=== PATIENT | female | born 1985 | race Caucasian/White ===

== ENCOUNTER → 2018-03-15 09:49 | Outpatient (CLI) | payer OTHER, SELFPAY ==
[2018-03-15 10:21] LABS: Add Manual Diff / Slide Review NO; Basophils Percent Auto 0.8 % (0-2); Eosinophils Percent Auto 2.6 % (2-4); Hematocrit 37.9 % (36-46); Lymphocytes Percent Auto 37.1 % (25-40); Mean Corpuscular HGB Conc 34.3 % (30-36); Mean Corpuscular Hemoglobin 30.8 PG (26-34); Mean Corpuscular Volume 89.6 fL (80-100); Monocytes Percent Auto 7.8 % (3-14); Neutrophils Absolute Auto 2600 /uL (3000-5900); Neutrophils Percent Auto 51.7 % (50-75); Platelet Count 195 X10^3/uL (150-400); Red Blood Cell Count 4.23 X10^6/uL (4.0-5.2); Red Cell Distribution Width 12.7 % (11.6-14.8)
[2018-03-15 11:09] LABS: Alanine Aminotransferase 18 IU/L (9-52); Albumin 4.7 g/dL (3.5-5.0); Albumin Globulin Ratio 1.7 (1.0-2.8); Alkaline Phosphatase 41 U/L (38-126); Aspartate Aminotransferase 26 IU/L (14-36); BUN Creatinine Ratio 18.6 (6-22); Blood Urea Nitrogen 13 mg/dL (7-17); Calcium 9.6 mg/dL (8.4-10.2); Carbon Dioxide 29 mmol/L (22-32); Chloride 102 mmol/L (98-107); Estimated Glomerular Filt Rate > 60.0 mL/min (>60); Globulin 2.7 g/dL (1.7-4.1); Glucose 92 mg/dL (70-100); HEMOLYSIS 25 (0-50); Potassium 4.3 mmol/L (3.4-5.1); Sodium 142 mmol/L (137-145); Total Protein 7.4 g/dL (6.3-8.2)
[2018-03-15 11:43] LABS: TSH w/ Reflex to FT4 0.85 uIU/mL (0.47-4.68)
== END ==
PROVIDERS: PCP Family Medicine; Visit Provider Nurse Practitioner Family
DX: F41.9 Anxiety disorder, unspecified (principal); G47.00 Insomnia, unspecified; G47.26 Circadian rhythm sleep disorder, shift work type
CPT/HCPCS: 36415; 80053; 84443; 85025

== ENCOUNTER 2018-10-30 09:57 | Emergency (ER) | payer OTHER, SELFPAY ==
[2018-10-30] VITALS (10 sets, daily range): BP systolic 85–111; BP diastolic 37–66; PULSE 65–78; RESP 12–26; TEMP 36.8–37.1; O2SAT 98–100; BMI 25.4
[2018-10-30] MEDS: KETOROLAC 60 MG/2 ML VIAL 15 MG IV (11:10)
[2018-10-30] MEDS: SODIUM CHLORIDE 0.9% 1,000 ML 1000 ML IV (11:10)
[2018-10-30 11:27] LABS: Add Manual Diff / Slide Review NO; Basophils Absolute Auto 0 /uL (0-100); Basophils Percent Auto 0.6 % (0-2); Eosinophils Absolute Auto 0 /uL (0-450); Eosinophils Percent Auto 0.4 % (2-4); Hematocrit 40.1 % (36-46); Hemoglobin 13.7 g/dL (12.0-16.0); Lymphocytes Absolute Auto 1400 /uL (1100-4500); Lymphocytes Percent Auto 24.1 % (25-40); Mean Corpuscular HGB Conc 34.2 % (30-36); Mean Corpuscular Hemoglobin 30.1 PG (26-34); Mean Corpuscular Volume 88.2 fL (80-100); Monocytes Absolute Auto 400 /uL (0-900); Monocytes Percent Auto 7.4 % (3-14); Neutrophils Absolute Auto 4000 /uL (1500-7000); Neutrophils Percent Auto 67.5 % (50-75); Platelet Count 238 X10^3/uL (150-400); Red Blood Cell Count 4.55 X10^6/uL (4.0-5.2); Red Cell Distribution Width 13.2 % (11.6-14.8); White Blood Cell Count 5.9 X10^3/uL (4.5-11.0)
--- NOTE | 2018-10-30 11:33 | ED_ITS ---
HPI - Headache General Chief Complaint: Headache Stated Complaint: headache/neck pain/fever x7 days Time Seen by Provider: 10/30/18 10:06 Source: patient Mode of arrival: ambulatory Limitations: no limitations History of Present Illness HPI Narrative: 33-year-old female nonsmoker is otherwise healthy and presents to the emergency department with 1 week of headache, neck pain and now fever for the past few days. She denies any specific symptoms such as runny nose, sore throat or cough. She has had no chest pain or shortness of breath. She denies any nausea, vomiting or diarrhea. She has had no dysuria, frequency or urgency. She did have an episode of some chills a few days ago. She was seen at the walk-in clinic and they sent her here for further evaluation MD Complaint: headache Onset (ago): day(s) Onset description: gradual Location: diffuse Severity: moderate Quality: aching and throbbing Relieving factors: nothing Associated symptoms: fever, neck stiffness and photophobia Treatments prior to arrival: acetaminophen and ibuprofen Related Data Home Medications Medication Instructions Recorded Confirmed cetirizine 10 mg capsule 10 mg PO DAILY 03/28/18 10/30/18 fluticasone propionate 50 1 spray NASAL DAILY 03/28/18 10/30/18 mcg/actuation nasal spray,suspension norgestimate-ethinyl estradiol 1 tab PO QPM 10/30/18 10/30/18 [[place]] Previous Rx's Medication Instructions Recorded albuterol sulfate [Proventil HFA] 1 puff INH Q4HP PRN #8.5 gm 11/01/16 trazodone 50 mg tablet 50 mg PO BEDTIME PRN #90 tab 10/16/18 Allergies Allergy/AdvReac Type Severity Reaction Status Date / Time No Known Drug Allergies Allergy Verified 10/30/18 10:29 Review of Systems Constitutional Denies chills, Denies fever(s), Reports headache(s), Denies lethargy and Denies weakness Eyes Denies change in vision, Denies eye discharge, Denies irritation and Denies loss of vision ENT Ears, Nose, Mouth, and Throat: Denies change in voice, Reports headache(s), Reports neck pain and Denies sore throat Cardiovascular Denies chest pain, Denies irregular heart rhythm, Denies lightheadedness, Denies palpitations, Denies dyspnea, Denies dyspnea on exertion and Denies orthopnea Respiratory Denies cough, Denies dyspnea, Denies dyspnea on exertion and Denies wheezing Gastrointestinal Gastrointestinal: Denies abdominal pain, Denies change in bowel habits, Denies diarrhea, Denies nausea and Denies vomiting Genitourinary Denies hematuria, Denies flank pain, Denies urinary incontinence and Denies urinary urgency Musculoskeletal Reports myalgias and Reports neck pain Integumentary/Breasts Denies pruritus, Denies erythema, Denies rash and Denies wounds Neurologic Denies confusion, Reports headache(s), Denies loss of vision and Denies weakness Psychiatric Denies anxiety, Denies confusion, Denies depression, Denies homicidal ideation and Denies suicidal ideation Endocrine Denies palpitations Hematologic/Lymphatic Denies easy bruising Allergic/Immunologic Denies wheezing PFSH Medical History Vaginal delivery (Resolved) Social History Smoking Status: Never smoker alcohol intake: current substance use type: marijuana Social History Smoking Status: Never smoker alcohol intake: current substance use type: marijuana Exam Narrative Exam Narrative: GENERAL: 33-year-old female, obviously uncomfortable, resting in a dark room HEAD: Atraumatic. Normocephalic. No temporal or scalp tenderness. EYES: Pupils equal round and reactive. Extraocular motions intact. No scleral icterus. No injection or drainage. ENT: Nose without bleeding, purulent drainage or septal hematoma. Throat without erythema, tonsillar hypertrophy or exudate. Uvula midline. Airway patent. NECK: Trachea midline. No JVD or lymphadenopathy. Paraspinal muscles are mildly tender to palpation but patient has ability to look left, right as well as up and down. She is found sitting in the room with her knees bent. She has negative Kernig's and Brudzinski's signs CARDIOVASCULAR: Regular rate and rhythm without murmurs, gallops, or rubs. RESPIRATORY: Clear to auscultation. Breath sounds equal bilaterally. No wheezes, rales, or rhonchi. GASTROINTESTINAL: Abdomen soft, non-tender, nondistended. No hepato- splenomegaly, or palpable masses. No guarding. EXTREMITIES: No clubbing, cyanosis, or edema. No joint tenderness, effusion, or edema noted. BACK: Nontender without deformity or crepitance. No flank tenderness. NEURO: AOx3. SKIN: No rash or erythema. Initial Vital Signs Initial Vital Signs: Vital Signs Temperature 98.8 F 10/30/18 10:29 Pulse Rate 78 10/30/18 10:29 Respiratory Rate 16 10/30/18 10:29 Blood Pressure 97/59 L 10/30/18 10:29 Pulse Oximetry 99 10/30/18 10:29 Procedures Lumbar Puncture Time Out Performed: Yes Patient Position: upright Skin Prep: 0.5% Chlorhexidine/Alcohol Local Anesthetic: lidocaine 1% Amount of anesthesia used (mL): 4 Spinal Needle Gauge: 22G Interspace Used: L4-L5 Fluid Initially Obtained: clear Complications: none Course Orders Ordered: ED Orders 10/30/18 10:25 Influenza A and B by PCR Rapid Stat 10/30/18 11:05 Basic Metabolic Panel Stat Blood Culture Stat Complete Blood Count AUTO DIFF Stat Lactate (Lactic Acid) Stat Procalcitonin Stat 10/30/18 11:55 Cell Count w Diff CSF Stat Cell Count w Diff CSF Stat Glucose CSF Stat Meningitis Panel (Film Array) Stat Total Protein CSF Stat 10/30/18 12:12 CSF culture Stat 10/30/18 14:36 Ictotest Urine Stat Urinalysis and Microscopic Stat Discontinued Medications Acetaminophen (Tylenol) 650 mg PO NOW ONE Stop: 10/30/18 15:36 Last Admin: 10/30/18 15:40 Dose: 650 mg Diphenhydramine HCl (Benadryl) 25 mg IV NOW ONE Stop: 10/30/18 16:12 Last Admin: 10/30/18 16:13 Dose: 25 mg Sodium Chloride (Normal Saline 0.9%) 1,000 mls @ 1,000 mls/hr IV BOLUS ONE Stop: 10/30/18 11:26 Last Infusion: 10/30/18 12:58 Dose: 0 mls/hr Admin: 10/30/18 11:10 Dose: 1,000 mls/hr Ceftriaxone Sodium/Dextrose (Rocephin) 1 gm in 50 mls @ 100 mls/hr IV NOW ONE Stop: 10/30/18 13:04 Last Admin: 10/30/18 12:57 Dose: Not Given Ceftriaxone Sodium/Dextrose (Rocephin) 2 gm in 50 mls @ 100 mls/hr IV NOW ONE Stop: 10/30/18 13:08 Last Infusion: 10/30/18 13:53 Dose: 0 mls/hr Admin: 10/30/18 12:46 Dose: 100 mls/hr Vancomycin HCl/Dextrose (Vancomycin) 750 mg in 150 mls @ 150 mls/hr IV NOW ONE Stop: 10/30/18 15:23 Last Infusion: 10/30/18 16:11 Dose: 0 mls/hr Admin: 10/30/18 14:57 Dose: 150 mls/hr Famotidine (Pepcid) 20 mg in 50 mls @ 200 mls/hr IV NOW ONE Stop: 10/30/18 16:25 Last Infusion: 10/30/18 17:10 Dose: 0 mls/hr Admin: 10/30/18 16:15 Dose: 200 mls/hr Ketorolac Tromethamine (Toradol) 15 mg IV NOW ONE Stop: 10/30/18 10:40 Last Admin: 10/30/18 11:10 Dose: 15 mg Methylprednisolone (Solu-Medrol 125 Mg Vial) 125 mg IV NOW ONE Stop: 10/30/18 16:12 Last Admin: 10/30/18 16:13 Dose: 125 mg Consultations Consultation #1: call to [facility]. Happy to accept patient, will send to [place] for ongoing evaluation and trending out cultures patient developed some itching and rash after vanco completed, added solumedrol, benadryl Vital Signs - 8 hr 10/30/18 10:29 10/30/18 11:08 10/30/18 11:30 Temperature 98.8 F Pulse Rate 78 70 67 Respiratory Rate 16 26 H 20 Blood Pressure 97/59 L Blood Pressure [Left Arm] 111/66 87/48 L Pulse Oximetry 99 98 99 10/30/18 11:50 10/30/18 12:00 10/30/18 12:30 Temperature 98.7 F Pulse Rate 72 65 75 Respiratory Rate 20 21 12 Blood Pressure Blood Pressure [Left Arm] 105/46 L 89/45 L 85/37 L Pulse Oximetry 100 99 100 10/30/18 13:12 10/30/18 15:30 10/30/18 17:01 Temperature 98.3 F Pulse Rate 69 70 66 Respiratory Rate 20 18 15 Blood Pressure Blood Pressure [Left Arm] 95/58 L 95/52 L 100/58 L Pulse Oximetry 99 100 100 MDM - Headache Lab Data Result diagrams: 10/30/18 11:05 10/30/18 11:05 Lab Results 10/30/18 10/30/18 10/30/18 Range/Units 10:25 11:05 11:05 WBC 5.9 (4.5-11.0) X10^3/uL RBC 4.55 (4.0-5.2) X10^6/uL Hgb 13.7 (12.0-16.0) g/dL Hct 40.1 (36-46) % MCV 88.2 (80-100) fL MCH 30.1 (26-34) PG MCHC 34.2 (30-36) % RDW 13.2 (11.6-14.8) % Plt Count 238 (150-400) X10^3/uL Neut % (Auto) 67.5 (50-75) % Lymph % (Auto) 24.1 L (25-40) % [place] % (Auto) 7.4 (3-14) % Eos % (Auto) 0.4 L (2-4) % Baso % (Auto) 0.6 (0-2) % Neut # (Auto) 4000 (9873-7168) /uL Lymph # (Auto) 1400 (3648-0804) /uL [place] # (Auto) 400 (0-900) /uL Eos # (Auto) 0 (0-450) /uL Baso # (Auto) 0 (0-100) /uL Sodium (137-145) mmol/L Potassium (3.4-5.1) mmol/L Chloride (98-107) mmol/L Carbon Dioxide (22-32) mmol/L BUN (7-17) mg/dL Creatinine (0.52-1.04) mg/dL Estimated GFR (>60) mL/min BUN/Creatinine Ratio (6-22) Glucose (70-100) mg/dL Lactate (0.7-2.1) mmol/L Calcium (8.4-10.2) mg/dL Procalcitonin < 0.05 (<0.5) ng/mL Urine Color Urine Appearance Urine pH (4.5-8.0) Ur Specific [place] (1.000-1.035) Urine Protein (Negative) Urine Glucose (UA) (Negative) g/dL Urine Ketones (NEGATIVE) Urine Occult Blood (Negative) Urine Nitrate (Negative) Urine Bilirubin (NEGATIVE) Urine Ictotest (Negative) Urine Urobilinogen (0.2) E.U./dL Ur Leukocyte Esterase (NEGATIVE) Urine RBC (0-5/HPF) Urine WBC (0-5/HPF) Ur Squamous Epith Cells (0-5/HPF) Amorphous Sediment Urine Bacteria (None) Urine Mucus (Negative) Ur Culture Indicated? CSF Tube Number CSF Volume CSF Appearance (Clear) CSF Color (Colorless) CSF WBC (0-5) MONO/uL CSF RBC RBC /uL CSF Mononuclear WBCs % CSF Polynuclear WBCs % CSF Glucose (40-70) mg/dL CSF Total Protein (12-60) mg/dL CSF C.neoform/gat PCR (Not Detect) CSF CMV DNA (PCR) (Not Detect) CSF Enterovirus (PCR) (Not Detect) CSF E. coli (PCR) (Not Detect) CSF H. influenzae (PCR) (Not Detect) CSF HSV I (PCR) (Not Detect) CSF HSV II (PCR) (Not Detect) CSF HHV 6 (PCR) (Not Detect) CSF L.monocytogenes PCR (Not Detect) CSF N. meningitidis PCR (Not Detect) CSF Parechovirus (PCR) (Not Detect) CSF S. agalactiae (PCR) (Not Detect) CSF S. pneumoniae (PCR) (Not Detect) CSF VZV (PCR) Influenza A & B (PCR) Negative (Negative) 10/30/18 10/30/18 10/30/18 Range/Units 11:05 11:05 11:55 WBC (4.5-11.0) X10^3/uL RBC (4.0-5.2) X10^6/uL Hgb (12.0-16.0) g/dL Hct (36-46) % MCV (80-100) fL MCH (26-34) PG MCHC (30-36) % RDW (11.6-14.8) % Plt Count (150-400) X10^3/uL Neut % (Auto) (50-75) % Lymph % (Auto) (25-40) % [place] % (Auto) (3-14) % Eos % (Auto) (2-4) % Baso % (Auto) (0-2) % Neut # (Auto) (9722-2636) /uL Lymph # (Auto) (8334-4213) /uL [place] # (Auto) (0-900) /uL Eos # (Auto) (0-450) /uL Baso # (Auto) (0-100) /uL Sodium 138 (137-145) mmol/L Potassium 4.1 (3.4-5.1) mmol/L Chloride 103 (98-107) mmol/L Carbon Dioxide 24 (22-32) mmol/L BUN 18 H (7-17) mg/dL Creatinine 0.80 (0.52-1.04) mg/dL Estimated GFR > 60.0 (>60) mL/min BUN/Creatinine Ratio 22.5 H (6-22) Glucose 82 (70-100) mg/dL Lactate 0.8 (0.7-2.1) mmol/L Calcium 9.2 (8.4-10.2) mg/dL Procalcitonin (<0.5) ng/mL Urine Color Urine Appearance Urine pH (4.5-8.0) Ur Specific [place] (1.000-1.035) Urine Protein (Negative) Urine Glucose (UA) (Negative) g/dL Urine Ketones (NEGATIVE) Urine Occult Blood (Negative) Urine Nitrate (Negative) Urine Bilirubin (NEGATIVE) Urine Ictotest (Negative) Urine Urobilinogen (0.2) E.U./dL Ur Leukocyte Esterase (NEGATIVE) Urine RBC (0-5/HPF) Urine WBC (0-5/HPF) Ur Squamous Epith Cells (0-5/HPF) Amorphous Sediment Urine Bacteria (None) Urine Mucus (Negative) Ur Culture Indicated? CSF Tube Number 2 CSF Volume 1.0 ml CSF Appearance Clear (Clear) CSF Color Colorless (Colorless) CSF WBC 372.5 H (0-5) MONO/uL CSF RBC 10 RBC /uL CSF Mononuclear WBCs 98 % CSF Polynuclear WBCs 2 % CSF Glucose 46 (40-70) mg/dL CSF Total Protein 85 H (12-60) mg/dL CSF C.neoform/gat PCR (Not Detect) CSF CMV DNA (PCR) (Not Detect) CSF Enterovirus (PCR) (Not Detect) CSF E. coli (PCR) (Not Detect) CSF H. influenzae (PCR) (Not Detect) CSF HSV I (PCR) (Not Detect) CSF HSV II (PCR) (Not Detect) CSF HHV 6 (PCR) (Not Detect) CSF L.monocytogenes PCR (Not Detect) CSF N. meningitidis PCR (Not Detect) CSF Parechovirus (PCR) (Not Detect) CSF S. agalactiae (PCR) (Not Detect) CSF S. pneumoniae (PCR) (Not Detect) CSF VZV (PCR) Influenza A & B (PCR) (Negative) 10/30/18 10/30/18 10/30/18 Range/Units 11:55 11:55 14:36 WBC (4.5-11.0) X10^3/uL RBC (4.0-5.2) X10^6/uL Hgb (12.0-16.0) g/dL Hct (36-46) % MCV (80-100) fL MCH (26-34) PG MCHC (30-36) % RDW (11.6-14.8) % Plt Count (150-400) X10^3/uL Neut % (Auto) (50-75) % Lymph % (Auto) (25-40) % [place] % (Auto) (3-14) % Eos % (Auto) (2-4) % Baso % (Auto) (0-2) % Neut # (Auto) (5502-0909) /uL Lymph # (Auto) (3081-7477) /uL [place] # (Auto) (0-900) /uL Eos # (Auto) (0-450) /uL Baso # (Auto) (0-100) /uL Sodium (137-145) mmol/L Potassium (3.4-5.1) mmol/L Chloride (98-107) mmol/L Carbon Dioxide (22-32) mmol/L BUN (7-17) mg/dL Creatinine (0.52-1.04) mg/dL Estimated GFR (>60) mL/min BUN/Creatinine Ratio (6-22) Glucose (70-100) mg/dL Lactate (0.7-2.1) mmol/L Calcium (8.4-10.2) mg/dL Procalcitonin (<0.5) ng/mL Urine Color [place] Urine Appearance Clear Urine pH 5.0 (4.5-8.0) Ur Specific [place] >=1.030 H (1.000-1.035) Urine Protein Trace H (Negative) Urine Glucose (UA) Negative (Negative) g/dL Urine Ketones 3+ H (NEGATIVE) Urine Occult Blood Negative (Negative) Urine Nitrate Negative (Negative) Urine Bilirubin 2+ H (NEGATIVE) Urine Ictotest Negative (Negative) Urine Urobilinogen 0.2 (0.2) E.U./dL Ur Leukocyte Esterase Negative (NEGATIVE) Urine RBC None seen (0-5/HPF) Urine WBC 0-1/hpf (0-5/HPF) Ur Squamous Epith Cells 0-1 /hpf (0-5/HPF) Amorphous Sediment 2+ Urine Bacteria Occasional (0-1) (None) Urine Mucus 2+ H (Negative) Ur Culture Indicated? Cult not indicated CSF Tube Number 4 CSF Volume 1.0 ml CSF Appearance Clear (Clear) CSF Color Colorless (Colorless) CSF WBC 485 H (0-5) MONO/uL CSF RBC 3 RBC /uL CSF Mononuclear WBCs 91 % CSF Polynuclear WBCs 9 % CSF Glucose (40-70) mg/dL CSF Total Protein (12-60) mg/dL CSF C.neoform/gat PCR Not detected (Not Detect) CSF CMV DNA (PCR) Not detected (Not Detect) CSF Enterovirus (PCR) Detected H (Not Detect) CSF E. coli (PCR) Not detected (Not Detect) CSF H. influenzae (PCR) Not detected (Not Detect) CSF HSV I (PCR) Not detected (Not Detect) CSF HSV II (PCR) Not detected (Not Detect) CSF HHV 6 (PCR) Not detected (Not Detect) CSF L.monocytogenes PCR Not detected (Not Detect) CSF N. meningitidis PCR Not detected (Not Detect) CSF Parechovirus (PCR) Not detected (Not Detect) CSF S. agalactiae (PCR) Not detected (Not Detect) CSF S. pneumoniae (PCR) Not detected (Not Detect) CSF VZV (PCR) Not detected Influenza A & B (PCR) (Negative) Point of Care Testing Rapid Strep A Negative MDM Narrative Medical decision making narrative: headache, fever, neck pain, and photophobia in an absence of other symptoms with LP noting 485 WBCs, Protein 85 and enterovirus on PCR. Rocephin and Vanco ordered. Transfer to further evaluate and stabilize patient Critical Care Time Critical Care Time: Yes Total Critical Care Time: 30 Attestation: The high probability of a clinically significant, sudden or life threatening deterioration of the [neurologic] system(s) required my full and direct attention, intervention and personal management. The aggregate critical care time was [30] minutes. This time is in addition to time spent performing reported procedures but includes the following: [x] Data Review and interpretation [x] Patient assessment and monitoring of vital signs [x] Documentation [x] Medication orders and management Discharge Plan Departure [facility] Clinical Impression: Meningitis Prescriptions: No Action albuterol sulfate [Proventil HFA] 90 MCG/PUFF HFA aerosol inhaler 1 puff INH Q4HP PRNQty: 8.5 RF: 0 cetirizine [Zyrtec] 10 mg capsule 10 mg PO DAILY RF: 0 fluticasone propionate [Flonase Allergy Relief] 50 mcg/actuation spray,suspension 1 spray NASAL DAILY RF: 0 trazodone 50 mg tablet 50 mg PO BEDTIME PRN (Reason: insomnia) Qty: 90 RF: 0 norgestimate-ethinyl estradiol [[place]] 0.25-35 mg-mcg Tablet 1 tab PO QPM RF: 0
[2018-10-30 11:41] LABS: BUN Creatinine Ratio 22.5 (6-22); Blood Urea Nitrogen 18 mg/dL (7-17); Calcium 9.2 mg/dL (8.4-10.2); Carbon Dioxide 24 mmol/L (22-32); Chloride 103 mmol/L (98-107); Estimated Glomerular Filt Rate > 60.0 mL/min (>60); Glucose 82 mg/dL (70-100); HEMOLYSIS < 15 (0-50); Lactate (Lactic Acid) 0.8 mmol/L (0.7-2.1); Potassium 4.1 mmol/L (3.4-5.1); Sodium 138 mmol/L (137-145)
[2018-10-30 11:47] LABS: Influenza A and B by PCR Rapid Negative (Negative)
[2018-10-30 12:03] LABS: Procalcitonin < 0.05 ng/mL (<0.5)
[2018-10-30 12:23] LABS: Appearance CSF Clear (Clear); CSF Tube Number 2; CSF Tube Volume 1.0 mL; Glucose CSF 46 mg/dL (40-70); Total Protein CSF 85 mg/dL (12-60)
[2018-10-30 12:24] LABS: CSF Tube Number 4; CSF Tube Volume 1.0 mL; Color CSF Colorless (Colorless); Red Blood Cell CSF 10 RBC /uL; White Blood Cell CSF 372.5 MONO/uL (0-5)
[2018-10-30 12:25] LABS: Appearance CSF Clear (Clear); Color CSF Colorless (Colorless); Red Blood Cell CSF 3 RBC /uL; White Blood Cell CSF 485 MONO/uL (0-5)
--- NOTE | 2018-10-30 12:32 | PC.NURSE ---
1100 Droplet Precautions in progress.
--- NOTE | 2018-10-30 12:34 | PC.NURSE ---
1115 LP Consent signed.
[2018-10-30] MEDS: CEFTRIAXONE 2 GM/50 ML FROZ.PIGGY IV (12:46)
[2018-10-30 13:18] LABS: Mononuclear WBC CSF 98 %; Polynuclear WBC CSF 2 %
[2018-10-30 13:19] LABS: Mononuclear WBC CSF 91 %; Polynuclear WBC CSF 9 %
[2018-10-30 13:24] LABS: Cryptococcus neoformans/gattii Not Detected (Not Detect); Escherichia coli K1 Not Detected (Not Detect); Haemophilus influenzae Not Detected (Not Detect); Herpes simplex virus 1 Not Detected (Not Detect); Herpes simplex virus 2 Not Detected (Not Detect); Human herpesvirus 6 Not Detected (Not Detect); Human parechovirus Not Detected (Not Detect); Listeria monocytogenes Not Detected (Not Detect); Neisseria meningitidis Not Detected (Not Detect); Streptococcus agalactiae Not Detected (Not Detect); Streptococcus pneumoniae Not Detected (Not Detect); Varicella Zoster Virus Not Detected
[2018-10-30 13:25] LABS: Enterovirus Detected (Not Detect)
[2018-10-30 14:40] LABS: RBC Urine None Seen (0-5/HPF)
[2018-10-30 14:45] LABS: Appearance Urine UA CLEAR; Bilirubin Urine UA 2+ (NEGATIVE); Color Urine UA ORANGE; Glucose Urine UA NEGATIVE (Negative); Ketones Urine UA 3+ (NEGATIVE); Leukocyte Esterase Urine UA NEGATIVE (NEGATIVE); Nitrite Urine UA NEGATIVE (Negative); Occult Blood Urine UA NEGATIVE (Negative); Protein Urine UA TRACE (Negative); Specific Gravity Urine UA >=1.030 (1.000-1.035); Urobilinogen Urine UA 0.2 E.U./dL (0.2)
[2018-10-30 14:54] LABS: Amorphous Sediment Urine 2+; Bacteria Urine Occasional (0-1); Culture Indicated Urine Cult Not Indicated; Ictotest Urine Negative (Negative); Mucus Urine 2+ (Negative); Squamous Epithelial Cell Urine 0-1 /HPF (0-5/HPF); WBC Urine 0-1/HPF (0-5/HPF)
[2018-10-30] MEDS: VANCOMYCIN 750 MG/150 ML FROZ.PIGGY 150 MG IV (14:57)
[2018-10-30] MEDS: ACETAMINOPHEN 325 MG TABLET 650 MG PO (15:40)
--- NOTE | 2018-10-30 16:05 | PC.NURSE ---
Pt experiencing itching near hairline for a brief moment. Has stopped at this time. Dr Wellington aware
[2018-10-30] MEDS: diphenhydrAMINE 50 MG/ML VIAL 25 MG IV (16:13)
[2018-10-30] MEDS: methylPREDNISolone 125 MG/2 ML VIAL IV (16:13)
--- NOTE | 2018-10-30 16:13 | PC.NURSE ---
Pt became red again and started itching all over. Dr Wellington ordered solu medrol and benadryl. Pt having no difficulty breathing
[2018-10-30] MEDS: FAMOTIDINE 20 MG/50 ML PIGGYBACK 200 MG IV (16:15)
== END 2018-10-30 18:08 | disposition short-term general hospital (02) ==
PROVIDERS: Emergency Provider Emergency Medicine
DX: G03.9 Meningitis, unspecified (principal); R50.9 Fever, unspecified; H53.149 Visual discomfort, unspecified
CPT/HCPCS: 36415; 36591; 62270; 80048; 81001; 82945; 83605; 84145; 84157; 85025; 87040; 87070; 87205; 87400; 87798; 87880; 89051; 96361; 96365; 96367; 96375; 99284; 99285; J0696; J1200; J1885; J2930; J3370

== ENCOUNTER → 2018-12-23 15:42 | Outpatient (CLI) | payer OTHER, SELFPAY | PROVIDERS: PCP Registered Nurse; Visit Provider Registered Nurse | DX: L02.214 Cutaneous abscess of groin (principal) | CPT/HCPCS: 87070; 87075; 87077; 87147; 87186; 87205 ==

== ENCOUNTER → 2020-07-06 15:06 | Outpatient (CLI) | payer OTHER, SELFPAY | PROVIDERS: PCP Registered Nurse; Visit Provider Physician Assistant | DX: L02.419 Cutaneous abscess of limb, unspecified (principal); L03.119 Cellulitis of unspecified part of limb | CPT/HCPCS: 87070; 87075; 87205 ==

== ENCOUNTER → 2021-02-09 13:24 | Outpatient (CLI) | payer OTHER, SELFPAY | PROVIDERS: PCP Registered Nurse; Visit Provider Nurse Practitioner | DX: R10.2 Pelvic and perineal pain (principal) | CPT/HCPCS: 87086; 87210 ==

== ENCOUNTER → 2023-03-25 13:45 | Outpatient (CLI) | payer SELFPAY ==
[2023-03-25 18:29] LABS: Influenza A - CEPHEID Flu A NEGATIVE (NEGATIVE); Influenza B - CEPHEID Flu B NEGATIVE (NEGATIVE); Respiratory Syncytial Virus Negative (Negative)
[2023-03-25 18:30] LABS: COVID-19 CEPHEID 4-PLEX PCR Negative (Negative)
== END ==
PROVIDERS: Visit Provider Physician Assistant
DX: R05.9 Cough, unspecified (principal); R50.9 Fever, unspecified
CPT/HCPCS: 0241U

== ENCOUNTER → 2023-06-25 07:19 | Outpatient (CLI) | payer OTHER, SELFPAY ==
[2023-06-25 07:33] LABS: Add Manual Diff / Slide Review NO; Basophils Absolute Auto 0 /uL (0-100); Basophils Percent Auto 0.7 % (0-2); Eosinophils Absolute Auto 100 /uL (0-450); Hematocrit 38.5 % (36-46); Hemoglobin 13.1 g/dL (12.0-16.0); Lymphocytes Absolute Auto 1900 /uL (1100-4500); Lymphocytes Percent Auto 36.5 % (25-40); Mean Corpuscular Hemoglobin 28.1 PG (26-34); Mean Corpuscular Volume 82.7 fL (80-100); Monocytes Absolute Auto 400 /uL (0-900); Monocytes Percent Auto 7.1 % (3-14); Neutrophils Absolute Auto 2700 /uL (1500-7000); Neutrophils Percent Auto 53.7 % (50-75); Platelet Count 266 X10^3/uL (150-400); Red Blood Cell Count 4.66 X10^6/uL (4.0-5.2); Red Cell Distribution Width 13.4 % (11.6-14.8); White Blood Cell Count 5.1 X10^3/uL (4.5-11.0)
[2023-06-25 07:58] LABS: Alanine Aminotransferase 18 IU/L (<35); Albumin 4.9 g/dL (3.5-5.0); Albumin Globulin Ratio 1.4 (1.0-2.8); Alkaline Phosphatase 46 U/L (38-126); BUN Creatinine Ratio 19.7 (6-22); Bilirubin Total 1.3 mg/dL (0.2-1.3); Blood Urea Nitrogen 12 mg/dL (7-17); Calcium 9.9 mg/dL (8.4-10.2); Carbon Dioxide 29 mmol/L (22-32); Chloride 96 mmol/L (98-107); Cholesterol 179 mg/dL (140-199); Estimated Glomerular Filt Rate > 60 mL/min (>60); Globulin 3.4 g/dL (1.7-4.1); Glucose 93 mg/dL (70-100); HDL Cholesterol 90 mg/dL (40-60); LDL Cholesterol Calculated 80 mg/dL (<100); Potassium 3.9 mmol/L (3.4-5.1); Sodium 134 mmol/L (137-145); Total Protein 8.3 g/dL (6.3-8.2); Triglycerides 43 mg/dL (35-150)
[2023-06-29 14:50] LABS: HEMOLYSIS 32 (0-50)
[2023-06-29 14:51] LABS: Aspartate Aminotransferase 33 IU/L (14-36)
== END ==
PROVIDERS: PCP Family Medicine; Referring Provider Family Medicine; Visit Provider Family Medicine
DX: Z13.6 Encounter for screening for cardiovascular disorders (principal); Z83.3 Family history of diabetes mellitus; Z80.8 Family history of malignant neoplasm of other organs or systems
CPT/HCPCS: 36415; 80053; 80061; 83036; 84443; 85025

== ENCOUNTER 2024-03-16 19:48 | Emergency (ER) | payer OTHER, SELFPAY ==
--- NOTE | 2024-03-16 20:11 | PC.NURSE ---
Due to recent exposure at work to bacterial meningitis, prescribed prophylactic dose of antibiotics at request of infectious disease and employee health. Meds administered from pharmacy.
--- NOTE | 2024-03-16 23:41 | ED.GENADULT ---
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 Related Data Home Medications Medication Instructions Recorded Confirmed cetirizine 10 mg capsule (Zyrtec) 10 mg PO DAILY 03/28/18 02/28/24 Previous Rx's Medication Instructions Recorded dextroamphetamine-amphetamine 20 20 mg PO BID #60 tabs 02/18/24 mg tablet (Adderall) Allergies Allergy/AdvReac Type Severity Reaction Status Date / Time sulfamethoxazole Allergy Intermediate body rash Verified 02/28/24 11:08 [From Bactrim] trimethoprim [From Bactrim] Allergy Intermediate body rash Verified 02/28/24 11:08 vancomycin Allergy Mild Rash Verified 02/28/24 11:08 Patient History Medical History (Updated 03/16/24 @ 20:13 by Bre Angulo RN) Eczema Asthma (~2012) ADHD (~2020) Skin rash Vaginal delivery Family History (Updated 06/24/23 @ 21:01 by Valentina Nolan) Mother Hypertension Mental health problem Depression Anxiety Thyroid disease Sister Overweight Grandfather Parkinson's disease Grandmother Diabetes mellitus Hypertension Hyperlipidemia Grandfather Parkinson's disease Grandmother Cancer Social History marital status: number of children: 2 housing: house occupational status: employed Previous occupational history: Works in ER Smoking Status: Never smoker alcohol intake: current substance use type: marijuana Smoking Status: Never smoker Course Orders Ordered: Ciprofloxacin (Ciprofloxacin 250 Mg Tablet) 500 mg PO NOW Stop: 03/16/24 23:59 Discharge Plan Departure Patient Disposition: Home Clinical Impression: Exposure to communicable disease, Rash Prescriptions: No Action dextroamphetamine-amphetamine [Adderall] 20 mg tablet 20 mg PO BID Qty: 60 0RF Rx Instructions: administer doses at least 4-6 hours apart cetirizine [Zyrtec] 10 mg capsule 10 mg PO DAILY Patient Comments: rarely Stand Alone Forms: Patient Portal/API
== END 2024-03-16 20:13 | disposition home or self-care (01) ==
PROVIDERS: Emergency Provider Emergency Medicine; PCP Family Medicine
DX: R21 Rash and other nonspecific skin eruption (principal); Z20.818 Contact with and (suspected) exposure to other bacterial communicable diseases; Y99.0 Civilian activity done for income or pay
CPT/HCPCS: 99281

== ENCOUNTER → 2024-10-03 14:46 | Outpatient (CLI) | payer OTHER, SELFPAY ==
--- NOTE | 2024-10-03 14:47 | DI.RAD.S_ITS ---
PROCEDURE: XR LUMBAR SPINE 2-3V INDICATIONS: Low back pain with sciatica TECHNIQUE: 3 views of the lumbar spine were acquired. COMPARISON: None. FINDINGS: Bones: 5 [id number] vertebrae are present. Grade 1 anterolisthesis of L5 on S1. No vertebral body compression fractures. No suspicious bony lesions. There appears to be pars interarticularis defects at L5-S1. Degenerative changes at L4-5 and L5-S1. Soft tissues: Overlying bowel gas pattern is normal. No suspicious soft tissue calcifications. IMPRESSION: Grade 1 anterolisthesis of L5 on S1 with apparent pars interarticularis defects. Degenerative changes at L4-5 and L5-S1 with moderate disc height loss. Dictated by: Babak Pruett M.D. on 10/05/2024 at 21:45 Approved by: Babak Pruett M.D. on 10/05/2024 at 21:46
== END ==
PROVIDERS: PCP Family Medicine; Referring Provider Family Medicine; Visit Provider Family Medicine
DX: M43.17 Spondylolisthesis, lumbosacral region (principal); M47.816 Spondylosis without myelopathy or radiculopathy, lumbar region; M47.817 Spondylosis without myelopathy or radiculopathy, lumbosacral region; M54.9 Dorsalgia, unspecified
CPT/HCPCS: 72100

== ENCOUNTER → 2024-10-30 08:59 | Outpatient (CLI) | payer OTHER, SELFPAY ==
--- NOTE | 2024-10-30 09:00 | DI.MRI.S_ITS ---
PROCEDURE: MR LUMBAR SPINE WO CON INDICATIONS: progressive neurologic changes, weakness, numbness, falls TECHNIQUE: Noncontrast sagittal T1 spin echo and T2 fast echo, sagittal STIR, and T2 fast spin echo through the lumbar spine. In cases with scoliosis, additional coronal T2 fast spin echo may be performed. COMPARISON: None. FINDINGS: Image quality: Excellent. Alignment and Curvature: As below Bone Marrow: Bilateral L5 pars defects associated with grade 1 anterior spondylolisthesis at L5-S1 Spinal Cord: Conus medullaris terminates at the L1 level. Visualized cord demonstrates normal signal and size. Paraspinous Soft Tissues: No paravertebral masses. T12-L1: Normal appearance. L1-L2: Normal appearance. L2-L3: Normal appearance. L3-L4: Central disc protrusion results in mild central stenosis. No foraminal stenosis. L4-L5: Central disc protrusion/extrusion with inferior migration. No central stenosis. Hypertrophic arthropathy. Moderate bilateral foraminal stenosis greater on the right L5-S1: Disc bulge and arthropathy. Moderate right and no left foraminal stenosis. No central stenosis. IMPRESSION: Multilevel degenerative disc disease and arthropathy results in varying degrees of central and foraminal stenosis including moderate foraminal stenosis L4-5 and L5-S1 Grade 1 isthmic spondylolisthesis at L5-S1 Approved by: Uriel Moser M.D. on 10/30/2024 at 10:56
== END ==
LOC: MRI 08:59
PROVIDERS: Family Provider Family Medicine; PCP Family Medicine; Referring Provider Family Medicine; Visit Provider Family Medicine
DX: M51.360 Other intervertebral disc degeneration, lumbar region with discogenic back pain only (principal); M51.370 Other intervertebral disc degeneration, lumbosacral region with discogenic back pain only; M47.816 Spondylosis without myelopathy or radiculopathy, lumbar region; M47.817 Spondylosis without myelopathy or radiculopathy, lumbosacral region; M48.061 Spinal stenosis, lumbar region without neurogenic claudication; M48.07 Spinal stenosis, lumbosacral region; M43.17 Spondylolisthesis, lumbosacral region; R20.2 Paresthesia of skin; R29.898 Other symptoms and signs involving the musculoskeletal system; R29.818 Other symptoms and signs involving the nervous system; R29.6 Repeated falls
CPT/HCPCS: 72148

== ENCOUNTER → 2025-04-17 10:53 | Outpatient (CLI) | payer OTHER, SELFPAY ==
--- NOTE | 2025-04-17 10:54 | DI.RAD.S_ITS ---
PROCEDURE: XR LUMBAR SPINE 6V W BENDING INDICATIONS: L5 pars defects, facet arthropathy TECHNIQUE: 5 views of the lumbar spine acquired, including flexion and extension views. COMPARISON: [facility], , XR LUMBAR SPINE 2-3V, 10/03/2024, 14:46. FINDINGS: Bones: 5 nonrib-bearing vertebrae are present. Grade 1 anterolisthesis at L5- S1 due to bilateral pars defects. Moderate disc height loss at L4-L5. Mild facet joint arthropathy and anterior endplate osteophytes at L4-L5. No vertebral body compression fractures. No suspicious bony lesions. Soft tissues: Overlying bowel gas pattern is normal. No suspicious soft tissue calcifications. Flexion/extension: There is normal range of motion, with preserved normal alignment. No intersegmental hypermobility. IMPRESSION: No intersegmental hypermobility. Dictated by: Priscilla Godinez [facility] Interpreted: Roel Perry MD on 04/17/2025 at 11:51 Transcribed by: ZAHIDA on 04/17/2025 at 11:54 Approved by: Roel Perry M.D. on 04/22/2025 at 12:49
== END ==
PROVIDERS: PCP Family Medicine; Referring Provider Physical Medicine & Rehabilitation; Visit Provider Physical Medicine & Rehabilitation
DX: M54.17 Radiculopathy, lumbosacral region (principal); M43.17 Spondylolisthesis, lumbosacral region; M47.816 Spondylosis without myelopathy or radiculopathy, lumbar region
CPT/HCPCS: 72114